=== PATIENT | female | born 1960 | race Caucasian/White ===

== ENCOUNTER 2016-11-25 08:05 | Outpatient (CLI) | payer BC ==
[2016-11-25 13:14] LABS: BASOPHILS % (AUTO) 0.6 %; EOSINOPHILS # (AUTO) 0.1 10^3/uL (0.0-0.7); HCT - HEMATOCRIT 40.4 % (37.0-47.0); HGB - HEMOGLOBIN 13.4 g/dL (12.0-16.0); LYMPHOCYTES # (AUTO) 2.7 10^3/uL (1.5-3.5); LYMPHOCYTES % (AUTO) 31.4 %; MEAN CORPUSCULAR HEMOGLOBIN 29.8 pg (27.0-31.0); MEAN CORPUSCULAR HGB CONC 33.2 g/dL (32.0-36.0); MEAN CORPUSCULAR VOLUME 89.9 fL (81.0-99.0); MEAN PLATELET VOLUME 8.9 fL (7.9-10.8); MONOCYTES # (AUTO) 0.4 10^3/uL (0.0-1.0); NEUTROPHILS # (AUTO) 5.3 10^3/uL (1.5-6.6); RED BLOOD COUNT 4.49 10^6/uL (4.20-5.40); RED CELL DISTRIBUTION WIDTH 12.9 % (12.0-15.0); UNCORRECTED WHITE BLOOD COUNT 8.6 x10^3/uL; WHITE BLOOD COUNT 8.6 x10^3/uL (4.8-10.8)
[2016-11-25 13:37] LABS: ALBUMIN/GLOBULIN RATIO 1.2 (1.0-2.2); BILIRUBIN,TOTAL 0.6 mg/dL (0.2-1.0); BUN - BLOOD UREA NITROGEN 18 mg/dL (6-20); CALCIUM 9.5 mg/dL (8.5-10.3); CARBON DIOXIDE - CO2 26 mmol/L (21-32); CHLORIDE 100 mmol/L (101-111); CHOL/HDL RATIO 3.6 (<4.4); CHOLESTEROL 211 mg/dL; GFR - MDRD 57 (>89); GLUCOSE 86 mg/dL (70-100); HDL CHOLESTEROL 59 mg/dL; LDL/HDL RATIO 1.8 (<4.4); POTASSIUM 4.1 mmol/L (3.5-5.0); SODIUM 136 mmol/L (135-145); TOTAL PROTEIN 7.7 g/dL (6.7-8.2); TRIGLYCERIDES 230 mg/dL; VLDL CHOLESTEROL 46 mg/dL
[2016-11-25 13:46] LABS: THYROID STIMULATING HORMONE 1.05 uIU/mL (0.34-5.60)
[2016-11-25 13:51] LABS: FERRITIN 73.6 ng/mL (11.0-306.8)
== END 2016-11-25 08:06 | disposition home or self-care (01) ==
LOC: LAB.R 08:05
PROVIDERS: ATTEND Nurse Practitioner Primary Care
DX: Z00.00 Encounter for general adult medical examination without abnormal findings (principal); G47.62 Sleep related leg cramps; Z79.899 Other long term (current) drug therapy; Z68.30 Body mass index [BMI] 30.0-30.9, adult; R00.2 Palpitations; E06.3 Autoimmune thyroiditis
CPT/HCPCS: 80053; 80061; 82728; 84443; 85025

== ENCOUNTER 2016-12-24 09:40 | Outpatient (CLI) | payer BC ==
--- NOTE | 2016-12-24 12:34 | XRAY Report ---
TWO VIEW CHEST: 12/24/2016 CLINICAL INDICATION: Right-sided rib pain. FINDINGS: Frontal and lateral views of the chest demonstrate a normal cardiac silhouette. The lungs are clear. No effusion or pneumothorax is present. IMPRESSION: NORMAL CHEST. JOB #: [id number] EXT JOB #:[id number]
== END 2016-12-24 09:41 | disposition home or self-care (01) ==
LOC: DI 09:40
PROVIDERS: ATTEND Nurse Practitioner Primary Care
DX: R07.81 Pleurodynia (principal)
CPT/HCPCS: 71020

== ENCOUNTER 2017-04-17 10:49 | Outpatient (CLI) | payer BC ==
--- NOTE | 2017-04-17 12:25 | XRAY Report ---
THREE VIEW LEFT HAND: 04/17/2017 CLINICAL INDICATION: Fall, pain. FINDINGS: AP, lateral, oblique views of the left hand demonstrate no evidence of fracture or dislocation. Soft tissue swelling is present. No foreign body is seen in the soft tissues. IMPRESSION: SOFT TISSUE SWELLING, WORST AT THE THIRD AND FOURTH METACARPOPHALANGEAL JOINTS, BUT NO EVIDENCE OF ACUTE FRACTURE. TD: 04/17/2017 12:24
== END 2017-04-17 10:50 | disposition home or self-care (01) ==
LOC: DI 10:49
PROVIDERS: ATTEND Nurse Practitioner Primary Care
DX: M79.642 Pain in left hand (principal); R22.32 Localized swelling, mass and lump, left upper limb

== ENCOUNTER 2017-06-13 16:42 | Emergency (ER) | payer BC ==
[2017-06-13] MEDS ORDERED: diphenhydrAMINE INJ 50 MG/ML VIAL IVP STA (16:52)
[2017-06-13] MEDS ORDERED: METOPROLOL 5 MG/5 ML VIAL IVP STA (16:52)
[2017-06-13] MEDS ORDERED: METOCLOPRAMIDE 10 MG/2 ML VIAL IVP STA (16:52)
[2017-06-13] MEDS ORDERED: KETOROLAC 30 MG/ML VIAL IVP STA (16:52)
--- NOTE | 2017-06-13 16:53 | ED Physician Documentation ---
PD HPI HEADACHE - Stated complaint Stated Complaint: HEADACHE - History obtained from History obtained from: Patient, Family () - History of Present Illness Timing - onset: Other (56-year-old woman with chronic recurrent migraines, she has had one for 4-5 days. It is a frontal headache radiating to the occiput, gradual in onset and associated with photophobia, phonophobia, and nausea. Her home regimen for migraines and includes hydrocodone, Relpax, then a Toradol shot , then a DHE shot. She has been through this regimen several times without relief. It is not associated with fevers or neck stiffness. She says that usually in the emergency department Dilaudid is helpful.) Review of Systems Ten Systems: 10 systems reviewed and negative Constitutional: denies: Fever, Chills GI: denies: Abdominal Pain, Diarrhea, Hematemesis, Bloody / black stool : denies: Dysuria, Frequency PD PAST MEDICAL HISTORY - Past Medical History Past Medical History: Yes Neuro: Headache/migraine - Allergies Allergies/Adverse Reactions: Allergies Allergy/AdvReac Type Severity Reaction Status Date / Time cephalexin [From Keflex] Allergy Hives Verified 06/13/17 17:00 codeine Allergy Itching Verified 06/13/17 17:00 PD ED PE NORMAL - Vitals Vital signs reviewed: Yes - General General: Alert and oriented X 3, No acute distress (Other than significant photophobia) - HEENT HEENT: PERRL, EOMI - Neck Neck: Supple, no meningeal sign, No bony TTP - Neuro Neuro: Alert and oriented X 3, printer helper 2-12 intact Eye Opening: Spontaneous Motor: Obeys Commands Verbal: Oriented GCS Score: 15 - Psych Psych: Normal mood, Normal affect Results - Vitals Vitals: Vital Signs - 24 hr 06/13/17 06/13/17 16:49 17:22 Temperature 35.7 C L Heart Rate 82 79 Respiratory 16 14 Rate Blood Pressure 183/100 H 148/97 H O2 Saturation 99 95 Oxygen O2 Source Room air PD MEDICAL DECISION MAKING - ED course ED course: 56-year-old woman with migraines presents with a longer than usual migraine which was treated successfully with IV Reglan, Toradol, metoprolol, and Benadryl. Departure - Departure Disposition: 01 Home, Self Care Clinical Impression: Migraine Qualifiers: Migraine type: with aura Status migrainosus presence: with status migrainosus Intractability: intractable Qualified Code(s): G43.111 - Migraine with aura, intractable, with status migrainosus Hypertension Qualifiers: Hypertension type: essential hypertension Qualified Code(s): I10 - Essential ( primary) hypertension Condition: Good Record reviewed to determine appropriate education?: Yes Instructions: ED Headache Migraine Comments: For future reference, the medications we gave you here were: Reglan, 10 mg IV, Benadryl, 25 mg IV, Toradol 30 mg IV.
[2017-06-13 18:00] VITALS: BP 133/90
== END 2017-06-13 17:58 | disposition home or self-care (01) ==
LOC: ED 16:42
DX: G43.111 Migraine with aura, intractable, with status migrainosus (principal); I10 Essential (primary) hypertension
CPT/HCPCS: 96374; 96375; 99283; 99284; J1200; J2765

== ENCOUNTER 2017-09-09 08:00 | Outpatient (CLI) | payer BC ==
[2017-09-09 18:49] LABS: BASOPHILS # (AUTO) 0.1 10^3/uL (0.0-0.1); BASOPHILS % (AUTO) 0.8 %; EOSINOPHILS # (AUTO) 0.1 10^3/uL (0.0-0.7); EOSINOPHILS % (AUTO) 0.7 %; HGB - HEMOGLOBIN 13.5 g/dL (12.0-16.0); LYMPHOCYTES # (AUTO) 1.8 10^3/uL (1.5-3.5); LYMPHOCYTES % (AUTO) 23.6 %; MEAN CORPUSCULAR HEMOGLOBIN 31.3 pg (27.0-31.0); MEAN CORPUSCULAR HGB CONC 33.4 g/dL (32.0-36.0); MEAN CORPUSCULAR VOLUME 93.6 fL (81.0-99.0); MEAN PLATELET VOLUME 8.7 fL (7.9-10.8); MONOCYTES # (AUTO) 0.4 10^3/uL (0.0-1.0); MONOCYTES % (AUTO) 5.9 %; NEUTROPHILS # (AUTO) 5.2 10^3/uL (1.5-6.6); PLT - PLATELET COUNT 306 10^3/uL (130-450); RED BLOOD COUNT 4.31 10^6/uL (4.20-5.40); RED CELL DISTRIBUTION WIDTH 12.8 % (12.0-15.0); WHITE BLOOD COUNT 7.5 x10^3/uL (4.8-10.8)
== END 2017-09-09 08:01 ==
LOC: LAB.R 08:00
PROVIDERS: ATTEND Nurse Practitioner Primary Care
DX: M25.50 Pain in unspecified joint (principal); E03.9 Hypothyroidism, unspecified; J01.90 Acute sinusitis, unspecified; Z79.899 Other long term (current) drug therapy
CPT/HCPCS: 84443; 85025; 85651; 86140

== ENCOUNTER 2017-09-12 12:29 | Outpatient (CLI) | payer BC ==
--- NOTE | 2017-09-12 14:27 | CT Report ---
Procedure Date: 09/12/2017 Accession Number: [id number] / [id number] Procedure: CT - Sinuses CPT Code: FULL RESULT: EXAM: CT MAXILLOFACIAL WITHOUT CONTRAST EXAM DATE: 09/12/2017 12:47 PM. CLINICAL HISTORY: Rhinosinusitis, acute MAXILLARY. COMPARISONS: None. TECHNIQUE: Thin-section axial images were acquired of the face without contrast. Post-processing: Coronal and sagittal reformats. Other: None. In accordance with CT protocol optimization, one or more of the following dose reduction techniques were utilized for this exam: automated exposure control, adjustment of mA and/or KV based on patient size, or use of iterative reconstructive technique. FINDINGS: Soft Tissue: The infratemporal fossa and parapharyngeal spaces are unremarkable. Orbits: Symmetric and unremarkable. Bones: No fracture or bone lesion. Temporomandibular Joints: The temporomandibular joints are symmetric and normally located. Sinuses: Very minimal mucoperiosteal thickening is present in the bilateral maxillary and bilateral sphenoid sinuses. No fluid levels are seen. There is partial occlusion of the right ostiomeatal unit. Other: None. IMPRESSION: 1. Minimal chronic maxillary and ethmoid sinusitis. RADIA
--- NOTE | 2017-09-12 19:17 | Ultrasound Report ---
Procedure Date: 09/12/2017 Accession Number: [id number] / [id number] Procedure: US - Head or Neck Soft Tissue CPT Code: FULL RESULT: EXAM: THYROID ULTRASOUND EXAM DATE: 09/12/2017 01:20 PM. CLINICAL HISTORY: Thyroid nodule. History of West thyroiditis. Patient senses lump in throat. COMPARISON: None. TECHNIQUE: Real time sonographic imaging of the thyroid was performed by the household assistant. Multiple technical sales representative static images were saved for review. FINDINGS: THYROID GLAND: Right Lobe: 2.6 x 0.7 x 0.9. cm, volume 0.85 cc. Markedly heterogeneous. Right Lobe Nodules: None. Left Lobe: 2.3 x 1.0 x 0.6 cm, volume 0.72 cc. Markedly heterogeneous. Left Lobe Nodules: None. Isthmus: 0.11 cm AP. Isthmic Nodules: None. LYMPH NODES: No adenopathy demonstrated in the central or lateral compartment. OTHER: None. IMPRESSION: 1. Small markedly heterogeneous thyroid gland consistent with history of West thyroiditis. 2. No evidence of thyroid nodule. RADIA
== END 2017-09-12 12:30 | disposition home or self-care (01) ==
LOC: DI 12:29
PROVIDERS: ATTEND Nurse Practitioner Primary Care
DX: E03.9 Hypothyroidism, unspecified (principal); E04.1 Nontoxic single thyroid nodule; E06.3 Autoimmune thyroiditis; J01.00 Acute maxillary sinusitis, unspecified; J32.8 Other chronic sinusitis
CPT/HCPCS: 70486; 76536

== ENCOUNTER 2017-12-10 08:00 | Outpatient (CLI) | payer BC ==
[2017-12-10 13:44] LABS: BASOPHILS # (AUTO) 0.1 10^3/uL (0.0-0.1); BASOPHILS % (AUTO) 0.9 %; EOSINOPHILS % (AUTO) 0.6 %; HGB - HEMOGLOBIN 13.8 g/dL (12.0-16.0); LYMPHOCYTES # (AUTO) 2.5 10^3/uL (1.5-3.5); LYMPHOCYTES % (AUTO) 38.2 %; MEAN CORPUSCULAR HEMOGLOBIN 31.4 pg (27.0-31.0); MEAN CORPUSCULAR HGB CONC 33.9 g/dL (32.0-36.0); MEAN CORPUSCULAR VOLUME 92.6 fL (81.0-99.0); MEAN PLATELET VOLUME 8.9 fL (7.9-10.8); MONOCYTES # (AUTO) 0.5 10^3/uL (0.0-1.0); NEUTROPHILS # (AUTO) 3.5 10^3/uL (1.5-6.6); NEUTROPHILS % (AUTO) 53.3 %; PLT - PLATELET COUNT 291 10^3/uL (130-450); RED BLOOD COUNT 4.41 10^6/uL (4.20-5.40); RED CELL DISTRIBUTION WIDTH 12.8 % (12.0-15.0); WHITE BLOOD COUNT 6.7 x10^3/uL (4.8-10.8)
[2017-12-10 14:01] LABS: ALBUMIN 4.4 g/dL (3.2-5.5); ALBUMIN/GLOBULIN RATIO 1.3 (1.0-2.2); ALKALINE PHOSPHATASE 59 IU/L (42-121); ALT ALANINE AMINOTRANSFERASE 72 IU/L (10-60); AST ASPARTATE AMINOTRANSFERASE 42 IU/L (10-42); BILIRUBIN,TOTAL 0.9 mg/dL (0.2-1.0); BUN - BLOOD UREA NITROGEN 24 mg/dL (6-20); CALCIUM 9.4 mg/dL (8.5-10.3); CARBON DIOXIDE - CO2 27 mmol/L (21-32); CHLORIDE 102 mmol/L (101-111); CHOL/HDL RATIO 4.5 (<4.4); CHOLESTEROL 225 mg/dL; GFR - MDRD 57 (>89); GLUCOSE 114 mg/dL (70-100); HDL CHOLESTEROL 50 mg/dL; LDL CHOLESTEROL,CALCULATED 137 mg/dL; LDL/HDL RATIO 2.7 (<4.4); SODIUM 139 mmol/L (135-145); TOTAL PROTEIN 7.8 g/dL (6.7-8.2); VLDL CHOLESTEROL 38 mg/dL
== END 2017-12-10 23:59 | disposition home or self-care (01) ==
LOC: LAB.R 08:00
PROVIDERS: ATTEND Nurse Practitioner Primary Care
DX: I10 Essential (primary) hypertension (principal); Z79.899 Other long term (current) drug therapy; E03.9 Hypothyroidism, unspecified; E78.5 Hyperlipidemia, unspecified
CPT/HCPCS: 80053; 80061; 83721; 84443; 85025

== ENCOUNTER 2018-04-05 15:15 | Outpatient (CLI) | payer BC ==
[2018-04-05 12:13] LABS: CHOL/HDL RATIO 6.3 (<4.4); CHOLESTEROL 271 mg/dL; HDL CHOLESTEROL 43 mg/dL; LDL CHOLESTEROL,CALCULATED 165 mg/dL; LDL/HDL RATIO 3.8 (<4.4); VLDL CHOLESTEROL 63 mg/dL
== END 2018-04-05 23:59 | disposition home or self-care (01) ==
LOC: LAB.R 15:15
PROVIDERS: ATTEND Nurse Practitioner Primary Care
DX: E78.5 Hyperlipidemia, unspecified (principal); E03.9 Hypothyroidism, unspecified
CPT/HCPCS: 80061; 83721; 84443

== ENCOUNTER 2018-04-16 08:37 | Outpatient (CLI) | payer BC ==
[2018-04-16] MEDS ORDERED: GADOBUTROL 10 MMOL/10 ML VIAL ONE (09:09)
[2018-04-16] MEDS ORDERED: GADOBUTROL 10 MMOL/10 ML VIAL IVP ONE ×2 (09:35)
--- NOTE | 2018-04-16 14:26 | MRI Report ---
Reason: HEADACHE, POST TRAUMATIC, AMNESIA Procedure Date: 04/16/2018 Accession Number: [id number] / [id number] Procedure: MRI - Brain W/WO CPT Code: FULL RESULT: MRI OF BRAIN INDICATION: 57-year-old female. Status post fall 4 weeks ago. Complains of headaches and amnesia. TECHNIQUE: 1. T1 sagittal and fat saturated T2 coronal. 2. Axial T1 3D MP RAGE, FLAIR, T2, T2* GRE and DWI. 3. 8 cc of IV Gadavist. T1 3D MP RAGE axial. COMPARISON: None. FINDINGS: There is very mild generalized prominence of the cerebral cortical sulci, within normal limits for stated age. Ventricular size is normal. A few tiny T2 hyperintensities are identified in the subcortical white matter of the frontal lobes. Signal intensity of cortex and white matter is otherwise normal. Flow voids are demonstrated in the main intracranial arteries. No abnormal diffusion restriction is demonstrated. No evidence of acute or chronic hemorrhage on T2*GRE sequence. No abnormal extra-axial fluid collection. No mass-effect or midline shift. No enhancing space-occupying mass lesion is demonstrated. No pathologic meningeal or cranial nerve enhancement is identified. There appears to be normal intravascular contrast enhancement in the dural venous sinuses and deep venous structures. This effectively excludes the possibility of dural venous sinus thrombosis. Limited assessment of the orbits reveals no gross pathology. All mucosal thickening seen scattered throughout the maxillary, ethmoid and sphenoid sinuses. No air-fluid level is demonstrated. No mastoid or middle ear effusion. Marrow signal intensity in the regional skeletal structures is unremarkable. IMPRESSION: 1. A few tiny T2 hyperintensities are seen in the frontal white matter as described. The etiology is uncertain. Differential diagnostic considerations would include virtually the entire gamut of white matter disease. However, the clinical significance is doubtful. 2. Otherwise normal brain MRI.
== END 2018-04-16 08:38 | disposition home or self-care (01) ==
LOC: DI 08:37
PROVIDERS: ATTEND Nurse Practitioner Primary Care
DX: G44.309 Post-traumatic headache, unspecified, not intractable (principal); R41.3 Other amnesia
CPT/HCPCS: 70553; A9585

== ENCOUNTER 2018-06-24 11:09 | Outpatient (CLI) | payer BC ==
[2018-06-24 11:43] LABS: BASOPHILS # (AUTO) 0.1 10^3/uL (0.0-0.1); BASOPHILS % (AUTO) 0.9 %; EOSINOPHILS # (AUTO) 0.1 10^3/uL (0.0-0.7); EOSINOPHILS % (AUTO) 0.7 %; HGB - HEMOGLOBIN 13.6 g/dL (12.0-16.0); LYMPHOCYTES # (AUTO) 1.7 10^3/uL (1.5-3.5); MEAN CORPUSCULAR HEMOGLOBIN 30.8 pg (27.0-31.0); MEAN CORPUSCULAR HGB CONC 33.3 g/dL (32.0-36.0); MEAN CORPUSCULAR VOLUME 92.5 fL (81.0-99.0); MONOCYTES # (AUTO) 0.3 10^3/uL (0.0-1.0); NEUTROPHILS # (AUTO) 4.7 10^3/uL (1.5-6.6); NEUTROPHILS % (AUTO) 68.4 %; PLT - PLATELET COUNT 287 10^3/uL (130-450); RED CELL DISTRIBUTION WIDTH 13.9 % (12.0-15.0); WHITE BLOOD COUNT 6.9 x10^3/uL (4.8-10.8)
[2018-06-24 12:39] LABS: ALBUMIN 4.7 g/dL (3.2-5.5); ALBUMIN/GLOBULIN RATIO 1.5 (1.0-2.2); BILIRUBIN,TOTAL 0.8 mg/dL (0.2-1.0); CALCIUM 9.8 mg/dL (8.5-10.3); TOTAL PROTEIN 7.9 g/dL (6.7-8.2)
[2018-06-24 12:57] LABS: THYROID STIMULATING HORMONE 13.25 uIU/mL (0.34-5.60)
[2018-06-24 12:59] LABS: FREE T4 (FREE THYROXINE) 0.81 ng/dL (0.58-1.64)
[2018-06-24 13:24] LABS: FOLLICLE STIMULATING HORMONE 160.81 mIU/mL
[2018-06-24 13:25] LABS: LUTEINIZING HORMONE 48.22 mIU/mL
[2018-06-25 12:41] LABS: HEPATITIS C ANTIBODY NON-REACTIVE (NON-REACTIVE)
== END 2018-06-24 11:10 | disposition home or self-care (01) ==
LOC: LAB 11:09
PROVIDERS: ATTEND Family Medicine
DX: R61 Generalized hyperhidrosis (principal); M79.7 Fibromyalgia; G43.109 Migraine with aura, not intractable, without status migrainosus; I10 Essential (primary) hypertension; E03.9 Hypothyroidism, unspecified; G56.00 Carpal tunnel syndrome, unspecified upper limb; F43.10 Post-traumatic stress disorder, unspecified; J45.998 Other asthma
CPT/HCPCS: 36415; 80053; 81599; 82306; 83001; 83002; 84144; 84439; 84443; 84481; 85025; 86803

== ENCOUNTER 2018-07-27 12:07 | Outpatient (CLI) | payer BC ==
[2018-07-27 12:31] LABS: BASOPHILS % (AUTO) 0.6 %; EOSINOPHILS # (AUTO) 0.1 10^3/uL (0.0-0.7); EOSINOPHILS % (AUTO) 0.8 %; HGB - HEMOGLOBIN 13.1 g/dL (12.0-16.0); LYMPHOCYTES # (AUTO) 1.9 10^3/uL (1.5-3.5); MEAN CORPUSCULAR HEMOGLOBIN 31.3 pg (27.0-31.0); MEAN CORPUSCULAR HGB CONC 32.3 g/dL (32.0-36.0); MEAN CORPUSCULAR VOLUME 96.9 fL (81.0-99.0); MEAN PLATELET VOLUME 9.8 fL (7.9-10.8); MONOCYTES # (AUTO) 0.3 10^3/uL (0.0-1.0); MONOCYTES % (AUTO) 4.7 %; NEUTROPHILS # (AUTO) 4.2 10^3/uL (1.5-6.6); NEUTROPHILS % (AUTO) 64.6 %; PLT - PLATELET COUNT 280 10^3/uL (130-450); RED BLOOD COUNT 4.19 10^6/uL (4.20-5.40); RED CELL DISTRIBUTION WIDTH 12.4 % (12.0-15.0); WHITE BLOOD COUNT 6.4 x10^3/uL (4.8-10.8)
== END 2018-07-27 12:08 | disposition home or self-care (01) ==
LOC: LAB 12:07
PROVIDERS: ATTEND Nurse Practitioner
DX: R59.0 Localized enlarged lymph nodes (principal); N64.4 Mastodynia; R61 Generalized hyperhidrosis
CPT/HCPCS: 36415; 85025; 85651; 86140

== ENCOUNTER 2018-08-09 10:12 | Outpatient (CLI) | payer BC ==
--- NOTE | 2018-08-09 11:30 | Mammography Report ---
Reason: BILAT BREAST PAIN Procedure Date: 08/09/2018 Accession Number: [id number] / [id number] Procedure: MALINI - Diagnostic Dig Bilat CPT Code: FULL RESULT: EXAM: Diagnostic Dig Bilat DATE: 08/09/2018 11:24 AM CLINICAL HISTORY: Intermittent bilateral breast pain TECHNIQUE: (B) - Bilateral CC and MLO views were obtained. COMPARISON: 02/29/2016, 02/08/2015, 03/02/2014 and 11/08/2010 PARENCHYMAL PATTERN: (A) - The breasts demonstrate scattered fibroglandular densities bilaterally. FINDINGS: No significant interval change. There are no suspicious masses, calcifications, or areas of distortion. A nodular density in the left upper inner quadrant is stable compared with 2010. IMPRESSION: Benign findings. BI-RADS category 2. RECOMMENDATION: (ANNUAL) - Recommend routine annual screening mammography. BI-RADS CATEGORY: (2) - Benign Findings. STANDARD QUALIFYING STATEMENTS: 1. This examination was not reviewed with the aid of Computer-Aided Detection (CAD). 2. A negative or benign imaging report should not preclude biopsy if clinically suspicious findings are present. 3. Dense breasts may obscure an underlying neoplasm. 4. This examination was reviewed with the aid of 3D breast imaging (tomosynthesis).
== END 2018-08-09 10:13 | disposition home or self-care (01) ==
LOC: DI 10:12
PROVIDERS: ATTEND Nurse Practitioner
DX: N64.4 Mastodynia (principal)
CPT/HCPCS: 77062; 77066

== ENCOUNTER 2018-11-05 08:00 | Outpatient (CLI) | payer BC ==
[2018-11-05 11:32] LABS: CREATININE,URINE 73.4 mg/dL
== END 2018-11-05 23:59 | disposition home or self-care (01) ==
LOC: LAB.R 08:00
PROVIDERS: ATTEND Internal Medicine Endocrinology, Diabetes & Metabolism
DX: E03.8 Other specified hypothyroidism (principal); E04.1 Nontoxic single thyroid nodule; E66.9 Obesity, unspecified; R03.0 Elevated blood-pressure reading, without diagnosis of hypertension; R61 Generalized hyperhidrosis
CPT/HCPCS: 81599; 82384; 82570; 83497; 83835

== ENCOUNTER 2018-12-24 05:59 | Day surgery (SDC) | payer BC ==
--- NOTE | 2018-12-24 06:13 | ED Physician Documentation ---
PD HPI ABD PAIN - Stated complaint Stated Complaint: ABD PX - Chief complaint Chief Complaint: Abd Pain - History obtained from History obtained from: Patient, Family - History of Present Illness Timing - onset: Enter time (17:00), Yesterday Timing - duration: Hours Timing - details: Abrupt onset, Waxing and waning Pain level max: 10 Pain level now: 10 Quality: Pain Location: RUQ, Epigastric Radiation: Other (radiates around bilateral flanks to back) Improved by: Other (no ameliorating factors) Worsened by: Other (no apparent exacerbating factors) Associated symptoms: Nausea. No: Fever, Vomiting, Diarrhea, Constipation, Dysuria, Chest pain Similar symptoms before: Other (milder, self-limited episodes over past few days) Recently seen: Not recently seen Review of Systems Constitutional: reports: Sweats. denies: Fever, Chills Eyes: reports: Reviewed and negative Ears: reports: Reviewed and negative Nose: reports: Reviewed and negative Throat: reports: Reviewed and negative Cardiac: reports: Reviewed and negative Respiratory: reports: Reviewed and negative GI: reports: Abdominal Pain, Nausea. denies: Abdominal Swelling, Vomiting, Constipation, Diarrhea : denies: Dysuria, Frequency Skin: reports: Reviewed and negative Musculoskeletal: reports: Reviewed and negative Neurologic: reports: Reviewed and negative PD PAST MEDICAL HISTORY - Past Medical History Cardiovascular: Hypertension - Past Surgical History Ortho: Carpal Tunnel surgery /LOG RAFTER: Hysterectomy - Allergies Allergies/Adverse Reactions: Allergies Allergy/AdvReac Type Severity Reaction Status Date / Time cephalexin [From Keflex] Allergy Hives Verified 12/24/18 06:09 codeine Allergy Itching Verified 12/24/18 06:09 - Social History Does the pt smoke?: No Smoking Status: Never smoker - Immunizations Immunizations are current?: Yes PD ED PE NORMAL - Vitals Vital signs reviewed: Yes - General General: Alert and oriented X 3, Well developed/nourished, Other (obvious and severe painful distress, diaphoretic) - HEENT HEENT: PERRL, EOMI, Moist mucous membranes - Neck Neck: Supple, no meningeal sign - Cardiac Cardiac: RRR, No murmur - Respiratory Respiratory: No respiratory distress, Clear bilaterally - Abdomen Abdomen: Soft, Non distended, Other (TTP RUQ and epigastrium) - Back Back: No CVA TTP - Derm Derm: Normal color, Warm and dry, No rash - Extremities Extremities: Normal ROM s pain, No edema - Neuro Neuro: Alert and oriented X 3 Results - Vitals Vitals: Vital Signs - 24 hr 12/24/18 06:05 Temperature 36.7 C Heart Rate 50 L Respiratory 20 Rate Blood Pressure 170/87 H O2 Saturation 100 Oxygen O2 Source Room air - Labs Labs: Laboratory Tests 12/24/18 12/24/18 12/24/18 06:20 06:20 08:15 WBC 10.9 H RBC 4.31 Hgb 13.2 Hct 39.9 MCV 92.6 MCH 30.6 MCHC 33.1 RDW 11.7 L Plt Count 304 MPV 10.3 Neut # (Auto) 7.4 H Lymph # (Auto) 2.7 [place] # (Auto) 0.7 Eos # (Auto) 0.1 Baso # (Auto) 0.1 Absolute Nucleated RBC 0.00 Nucleated RBC % 0.0 Sodium 139 Potassium 4.1 Chloride 101 Carbon Dioxide 27 Anion Gap 11.0 BUN 21 H Creatinine 0.9 Estimated GFR (MDRD) 64 L Glucose 163 H Calcium 10.8 H Total Bilirubin 1.0 AST 25 ALT 47 Alkaline Phosphatase 75 Total Protein 7.9 Albumin 4.5 Globulin 3.4 Albumin/Globulin Ratio 1.3 Lipase 47 Urine Color YELLOW Urine Clarity CLEAR Urine pH 6.0 Ur Specific [place] 1.025 Urine Protein NEGATIVE Urine Glucose (UA) NEGATIVE Urine Ketones NEGATIVE Urine Occult Blood NEGATIVE Urine Nitrite NEGATIVE Urine Bilirubin NEGATIVE Urine Urobilinogen 0.2 (NORMAL) Ur Leukocyte Esterase NEGATIVE Ur Microscopic Review NOT INDICATED Urine Culture Comments NOT INDICATED - Rads (name of study) RUQ US Radiology: Prelim report reviewed, See rad report PD MEDICAL DECISION MAKING - ED course Complexity details: reviewed results, re-evaluated patient, considered differential, d/w patient, d/w family ED course: good results with IV dilaudid but relief was transient, required repeat dose shortly after US performed. US shows multiple gallstones including impacted stone/nonmobile in region of GB neck. D/W Dr. Maravilla, and he evaluates patient in ED and plans to perform cholecystectomy later today Departure - Departure Disposition: ED Transfer to [facility] Clinical Impression: Cholecystitis Condition: Stable Discharge Date/Time: 12/24/18 09:12
[2018-12-24] MEDS ORDERED: HYDROmorphone 1 MG/ML CARPUJECT IVP STA ×3 (06:20→07:56)
[2018-12-24] MEDS ORDERED: HYDROmorphone 1 MG/ML CARPUJECT ONE ×2 (06:20→09:26)
[2018-12-24] MEDS ORDERED: ONDANSETRON 4 MG/2 ML VIAL ONE ×3 (06:20→13:17)
[2018-12-24] MEDS ORDERED: SODIUM CHLORIDE 0.9% 1,000 ML IV STA (06:20)
[2018-12-24 06:25] LABS: BASOPHILS # (AUTO) 0.1 10^3/uL (0.0-0.1); BASOPHILS % (AUTO) 0.5 %; EOSINOPHILS # (AUTO) 0.1 10^3/uL (0.0-0.7); EOSINOPHILS % (AUTO) 0.5 %; HGB - HEMOGLOBIN 13.2 g/dL (12.0-16.0); LYMPHOCYTES # (AUTO) 2.7 10^3/uL (1.5-3.5); MEAN CORPUSCULAR HEMOGLOBIN 30.6 pg (27.0-31.0); MEAN CORPUSCULAR HGB CONC 33.1 g/dL (32.0-36.0); MEAN CORPUSCULAR VOLUME 92.6 fL (81.0-99.0); MEAN PLATELET VOLUME 10.3 fL (7.9-10.8); MONOCYTES # (AUTO) 0.7 10^3/uL (0.0-1.0); NEUTROPHILS # (AUTO) 7.4 10^3/uL (1.5-6.6); NEUTROPHILS % (AUTO) 67.5 %; PLT - PLATELET COUNT 304 10^3/uL (130-450); RED BLOOD COUNT 4.31 10^6/uL (4.20-5.40); RED CELL DISTRIBUTION WIDTH 11.7 % (12.0-15.0); WHITE BLOOD COUNT 10.9 x10^3/uL (4.8-10.8)
[2018-12-24] MEDS: ONDANSETRON 4 MG/2 ML VIAL IVP STA ×2 (06:25→13:22)
[2018-12-24 06:42] LABS: ALBUMIN 4.5 g/dL (3.2-5.5); ALBUMIN/GLOBULIN RATIO 1.3 (1.0-2.2); CALCIUM 10.8 mg/dL (8.5-10.3); CREATININE 0.9 mg/dL (0.4-1.0); TOTAL PROTEIN 7.9 g/dL (6.7-8.2)
[2018-12-24] MEDS ORDERED: LACTATED RINGERS 1,000 ML IV STA (07:42)
[2018-12-24] MEDS ORDERED: PIPERACILLIN/TAZOBACTAM 3.375 GM in SODIUM CHLORIDE 0.9% MINIBAG 100 ML IV STA (07:43)
--- NOTE | 2018-12-24 07:57 | Ultrasound Report ---
Reason: abd. pain Procedure Date: 12/24/2018 Accession Number: [id number] / [id number] Procedure: US - Abdomen Limited CPT Code: Final Report FULL RESULT: EXAM: ABDOMEN ULTRASOUND LIMITED, RUQ EXAM DATE: 12/24/2018 07:15 AM. CLINICAL HISTORY: Right upper quadrant abdominal pain for 2 weeks. COMPARISON: None. TECHNIQUE: Real-time scanning was performed with static images obtained. FINDINGS: Liver: Enlarged, measuring 18.9 cm. Heterogeneous with diffusely increased echogenicity suggesting fatty infiltration or other hepatocellular disease. Patchy relatively normal echogenicity in the region of the gallbladder fossa likely reflects areas of fatty sparing. Main portal vein flow: Hepatopetal. Gallbladder: Per technologist, tenderness was present during exam. Gallbladder is distended containing multiple gallstones, including a nonmobile 8 mm stone in the region of the gallbladder neck. Gallbladder wall is prominent measuring up to 3-4 mm in some areas, however this is somewhat obscured by focal fatty sparing in the gallbladder fossa. No obvious pericholecystic fluid. Biliary System: CBD is dilated, measuring 9 mm. No obvious intrahepatic biliary ductal dilatation is identified. Pancreas: Visualized portions unremarkable. Other: Partially visualized right kidney demonstrates no gross abnormality or hydronephrosis, measures 9.1 cm in length. IMPRESSION: 1. Cholelithiasis with tenderness during examination and a nonmobile stone in the region of the gallbladder neck. 2. Dilated CBD (9 mm). No obstructing stone is seen in the visualized distal CBD sonographically. If clinically indicated MRCP could be considered for further evaluation. 3. Prominent gallbladder wall measuring up to 3-4 mm, but evaluation is somewhat limited by suspected focal fatty sparing in the region of the gallbladder fossa. Clinical correlation recommended to exclude acute cholecystitis. 4. Hepatomegaly with fatty infiltration or other hepatocellular disease. RADIA
[2018-12-24 08:33] LABS: BILIRUBIN,URINE NEGATIVE (NEGATIVE); GLUCOSE, URINE (UA) NEGATIVE (NEGATIVE); KETONES,URINE (UA) NEGATIVE (NEGATIVE); LEUKOCYTE ESTERASE, URINE NEGATIVE (NEGATIVE); NITRITE,URINE NEGATIVE (NEGATIVE); OCCULT BLOOD,URINE NEGATIVE (NEGATIVE); PROTEIN,URINE NEGATIVE (NEGATIVE); UROBILINOGEN,URINE 0.2 (NORMAL) E.U./dL (NORMAL)
[2018-12-24 08:38] LABS: CLARITY,URINE CLEAR (CLEAR)
[2018-12-24] MEDS ORDERED: LACTATED RINGERS 1,000 ML IV ONE ×2 (08:56)
[2018-12-24] MEDS ORDERED: SCOPOLAMINE PATCH TOP ONE (09:39)
[2018-12-24] MEDS ORDERED: KETOROLAC 30 MG/ML VIAL ONE (09:40)
[2018-12-24] MEDS: ENOXAPARIN 30 MG/0.3 ML SYRINGE SUBQ ONE ×2 (09:49→21:23)
[2018-12-24] MEDS ORDERED: FAMOTIDINE 20 MG/2 ML VIAL IVP ONE (10:00)
[2018-12-24] MEDS ORDERED: LIDOCAINE 1%-EPI 1:100000 20 ML MDV ONE (14:08)
--- NOTE | 2018-12-24 14:26 | ANESTHESIA ---
Pre-Anesthesia VS, & Labs - Diagnosis acute cholecystitis - Procedure lap nasim Vital Signs: Temp Pulse Resp BP Pulse Ox 36 C L 67 16 153/79 H 100 12/24/18 09:30 12/24/18 09:30 12/24/18 09:30 12/24/18 09:30 12/24/18 09:30 Height 5 ft 3 in Weight (kg) 81.65 kg Body Mass Index 31.8 - Is Patient ?: No - Lab Results Current Lab Results: Laboratory Tests 12/24/18 06:20: Sodium 139, Potassium 4.1, Chloride 101, Carbon Dioxide 27, A nion Gap 11.0, BUN 21 H, Creatinine 0.9, Estimated GFR (MDRD) 64 L, Glucose 163 H, Calcium 10.8 H, Total Bilirubin 1.0, AST 25, ALT 47, Alkaline Phosphatase 75, Total Protein 7.9, Albumin 4.5, Globulin 3.4, Albumin/Globulin Ratio 1.3, Lipase 47 12/24/18 06:20: WBC 10.9 H, RBC 4.31, Hgb 13.2, Hct 39.9, MCV 92.6, MCH 30.6, MCHC 33.1, RDW 11.7 L, Plt Count 304, MPV 10.3, Neut # (Auto) 7.4 H, Lymph # (Auto) 2.7, [place] # (Auto) 0.7, Eos # (Auto) 0.1, Baso # (Auto) 0.1, Absolute Nucleated RBC 0.00, Nucleated RBC % 0.0 Fish Bones: 12/24/18 06:20 12/24/18 06:20 Home Medications and Allergies Home Medications: Ambulatory Orders Erenumab-Aooe [Aimovig Autoinjector] 140 mg SQ PRN PRN 12/24/18 Levothyroxine [Synthroid] 112 mcg PO DAILY 12/24/18 Metoprolol Succinate 50 mg PO DAILY 12/24/18 Montelukast [Singulair] 10 mg PO QPM 12/24/18 Erenumab-Aooe [Aimovig Autoinjector] 140 mg SQ PRN PRN 12/24/18 Levothyroxine [Synthroid] 112 mcg PO DAILY 12/24/18 Metoprolol Succinate 50 mg PO DAILY 12/24/18 Montelukast [Singulair] 10 mg PO QPM 12/24/18 Allergies/Adverse Reactions: Allergies Allergy/AdvReac Type Severity Reaction Status Date / Time cephalexin [From Keflex] Allergy Hives Verified 12/24/18 06:09 codeine Allergy Itching Verified 12/24/18 06:09 Anes History & Medical History - Anesthetic History Anesthesia Complications: reports: No previous complications Family history of Anesthesia Complications: Denies Family history of Malignant Hyperthermia: Denies - Medical History Cardiovascular: reports: Hypertension, Other (reports 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 and 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 "everything was ok") Pulmonary: reports: Asthma (stress and exercise induced asthma), Sleep apnea Gastrointestinal: reports: GERD, Other Urinary: reports: None Neuro: reports: None Musculoskeletal: reports: None Endocrine/Autoimmune: reports: HyPOthyroidism Blood Disorders: reports: None Skin: reports: None Smoking Status: Never smoker Psychosocial: reports: Depression, Anxiety, Other (edible marijuana last used one month ago) - Surgical History Gynecologic: Hysterectomy Orthopedic: Carpal Tunnel surgery Exam General: Alert, Oriented x3, Cooperative, No acute distress Dental: WNL Mouth Openin Fingerbreadth Neck Mobility: Normal Mallampati classification: II Respiratory: Lungs clear, Normal breath sounds, No respiratory distress, No accessory muscle use Cardiovascular: Regular rate, Normal S1, Normal S2, No murmurs Abdomen: Normal bowel sounds, Soft, No tenderness, No hepatospenomegaly, No masses Extremities: No clubbing, No cyanosis, No edema, Normal pulses, No tenderness/s welling Neurological: Normal gait, Normal speech, Strength at 5/5 X4 ext, Normal tone, Sensation intact, Cranial nerves 3-12 NL, Reflexes 2+ Mental/Cognitive Status: Alert/Oriented X3, Normal for patient Cognitive Status: Within normal limits Plan Anesthesia Type: General Consent for Procedure(s) Verified and Reviewed: Yes Code Status: Attempt Resuscitation ASA classification: 2-Mild systemic disease Is this case an emergency?: No
[2018-12-24] MEDS ORDERED: IOTHALAMATE MEGLUMINE 50 ML VIAL ONE (17:30)
[2018-12-24] MEDS ORDERED: LIDOCAINE 1%-EPI 1:100000 20 ML MDV SUBQ ONE (17:48)
[2018-12-24] MEDS ORDERED: LORazepam 2 MG/ML VIAL ONE (18:48)
[2018-12-24] MEDS ORDERED: HYDROmorphone 0.5 MG/0.5 ML SYRINGE ONE (18:52)
[2018-12-24] MEDS ORDERED: ONDANSETRON 4 MG/2 ML VIAL IVP PRN (18:53)
--- NOTE | 2018-12-24 19:35 | IMMEDIATE POSTOPERATIVE NOTE ---
Immediate Postoperative Note - Procedure Note Procedure Date: 12/24/18 Pre-Op Diagnosis: Acute cholecystitis Procedure: Lap Ese Post-Op Diagnosis: Same Primary Surgeon: Renita Photogrammetric Technician: Scrub Anesthesia Type: General ET tube Findings: Acute cholecystitis Complications: No complications Estimated Blood Loss (in cc): 5 Specimens and Cultures: Gallbladder Plan of Care: Observe overnight with likely dschg home in am.
--- NOTE | 2018-12-24 19:40 | IMMEDIATE POSTOPERATIVE NOTE ---
Immediate Postoperative Note - Procedure Note Procedure Date: 12/24/18 Pre-Op Diagnosis: acute cholecystitis Procedure: lap nasim Post-Op Diagnosis: same Primary Surgeon: darshana Pea Viner Mechanic: wiring technician Anesthesia Type: General ET tube Findings: Acute cholecystitis Complications: No complications Estimated Blood Loss (in cc): 5 Specimens and Cultures: Gallbladder Plan of Care: Observe overnight w/likely discharge in am.
--- NOTE | 2018-12-24 20:58 | OPERATIVE REPORT ---
DATE OF SERVICE: 12/24/2018 Physician: Abhi Maravilla DO PREOPERATIVE DIAGNOSIS: Acute cholecystitis. POSTOPERATIVE DIAGNOSIS: Acute cholecystitis. PROCEDURE: Laparoscopic cholecystectomy. SURGEON: Abhi Maravilla DO ANESTHESIA PROVIDER: Bailey Macias CRNA. TYPE OF ANESTHESIA: General endotracheal tube with local assist. ESTIMATED BLOOD LOSS: Less than 5 mL FINDINGS: Acute cholecystitis with significant pericholecystic edema. COMPLICATIONS: None. DISPOSITION: Stable upon transport to recovery. HISTORY: Patient is a 58-year-old white female with about a 24-hour history of right upper quadrant abdominal pain beginning after a meal last night. The pain was unrelenting and went into her back. A gallbladder ultrasound study revealed gallstone impacted in the neck of the gallbladder. She did n ot have elevated liver enzymes. DESCRIPTION OF PROCEDURE: Patient was taken to the operating room and under the above-mentioned anes thetic, prepped and draped in the usual sterile manner. A vertically oriented intraumbilical incisio n was utilized to gain entrance into the abdominal cavity and the Jackson trocar was placed and secure d with the balloon. The pneumoperitoneum was then created and the laparoscopic camera introduced and the 3 working ports were placed under direct vision. Subsequently, the fundus of the gallbladder wa s identified, and placed on cephalad traction. The infundibulum was identified, and placed on gentle anterolateral traction. Subsequently, the cystic duct was identified, dissected and mobilized betwe en the neck of the gallbladder and the junction with the common bile duct. At no time was the common bile duct manipulated, injured or otherwise harmed. A staple was placed across the cystic duct at t he neck of the gallbladder and then 2 additional hunter below that and the cystic duct divided below the first staple. The cystic artery was next identified, dissected and mobilized and likewise tripl y ligated with hunter and divided leaving 2 hunter behind on the stump. At this time, the gallblad chang was excised out of the liver bed using electrocautery and drained intracorporeally. It was then placed in an EndoCatch bag and brought out through the umbilical port site. At this time, after a re ported correct sponge and needle count was obtained, the patient was prepared for closure. The liver bed was irrigated and a piece of Surgicel placed for added hemostasis and bacteria stasis as well. The working ports were removed under direct vision and there was no bleeding noted and the fascia was closed with 0 Vicryl. Skin margins were joined with running undyed subcuticular 4-0 Monocryl, [place] marcano over that and patient transported to recovery in stable condition. TD: 12/24/2018 19:51
[2018-12-24] MEDS: oxyCODONE 5 MG TABLET PO PRN (21:30)
[2018-12-24] MEDS ORDERED: LACTATED RINGERS 1,000 ML IV SCH (22:00)
[2018-12-25] MEDS: ACETAMINOPHEN 325 MG TABLET PO PRN ×2 (00:30→06:47)
[2018-12-25] MEDS: IBUPROFEN 600 MG TABLET PO PRN ×2 (00:31→06:48)
[2018-12-25] MEDS: oxyCODONE 5 MG TABLET PO PRN ×2 (02:01→06:46)
[2018-12-25 08:33] LABS: BILIRUBIN,URINE NEGATIVE (NEGATIVE); GLUCOSE, URINE (UA) NEGATIVE (NEGATIVE); KETONES,URINE (UA) NEGATIVE (NEGATIVE); LEUKOCYTE ESTERASE, URINE NEGATIVE (NEGATIVE); NITRITE,URINE NEGATIVE (NEGATIVE); OCCULT BLOOD,URINE NEGATIVE (NEGATIVE); PROTEIN,URINE NEGATIVE (NEGATIVE); UROBILINOGEN,URINE 0.2 (NORMAL) E.U./dL (NORMAL)
[2018-12-25 08:39] LABS: CLARITY,URINE CLEAR (CLEAR)
[2018-12-25 09:08] VITALS: BP 140/87
== END 2018-12-25 10:03 | disposition home or self-care (01) ==
LOC: ED 05:59 → SDS 09:05 → MS2 19:46 → SDS 12-25 10:03
PROVIDERS: ATTEND Surgery
PROC: 0FT44ZZ Resection of Gallbladder, Percutaneous Endoscopic Approach (ICD-10-PCS; principal; 2018-12-24 14:30)
DX: K80.12 Calculus of gallbladder with acute and chronic cholecystitis without obstruction (principal); I10 Essential (primary) hypertension; G47.30 Sleep apnea, unspecified; J45.909 Unspecified asthma, uncomplicated
CPT/HCPCS: 36415; 47562; 76705; 80053; 81003; 83690; 85025; 96374; 96376; 99285; A9270; J1170; J1650; J2060; J3490; J7120; Q9961; 81001; 87086

== ENCOUNTER 2019-02-01 10:24 | Outpatient (CLI) | payer BC ==
[2019-02-01 10:41] LABS: BASOPHILS # (AUTO) 0.1 10^3/uL (0.0-0.1); BASOPHILS % (AUTO) 0.8 %; EOSINOPHILS # (AUTO) 0.1 10^3/uL (0.0-0.7); EOSINOPHILS % (AUTO) 1.5 %; HGB - HEMOGLOBIN 13.2 g/dL (12.0-16.0); LYMPHOCYTES # (AUTO) 2.3 10^3/uL (1.5-3.5); LYMPHOCYTES % (AUTO) 29.4 %; MEAN CORPUSCULAR HEMOGLOBIN 29.9 pg (27.0-31.0); MEAN CORPUSCULAR HGB CONC 31.8 g/dL (32.0-36.0); MEAN CORPUSCULAR VOLUME 94.1 fL (81.0-99.0); MEAN PLATELET VOLUME 9.8 fL (7.9-10.8); MONOCYTES # (AUTO) 0.4 10^3/uL (0.0-1.0); MONOCYTES % (AUTO) 4.9 %; NEUTROPHILS # (AUTO) 4.9 10^3/uL (1.5-6.6); NEUTROPHILS % (AUTO) 62.9 %; PLT - PLATELET COUNT 296 10^3/uL (130-450); RED BLOOD COUNT 4.41 10^6/uL (4.20-5.40); RED CELL DISTRIBUTION WIDTH 12.4 % (12.0-15.0); WHITE BLOOD COUNT 7.8 x10^3/uL (4.8-10.8)
[2019-02-01 10:51] LABS: HB2 TOTAL 13.4 g/dL; HEMOGLOBIN A1C 0.72 g/dL; HEMOGLOBIN A1C % 7.1 % (4.6-6.2)
[2019-02-01 11:00] LABS: ALBUMIN 4.3 g/dL (3.2-5.5); ALBUMIN/GLOBULIN RATIO 1.4 (1.0-2.2); ALKALINE PHOSPHATASE 91 IU/L (42-121); ALT ALANINE AMINOTRANSFERASE 42 IU/L (10-60); AST ASPARTATE AMINOTRANSFERASE 28 IU/L (10-42); BILIRUBIN,TOTAL 0.7 mg/dL (0.2-1.0); BUN - BLOOD UREA NITROGEN 13 mg/dL (6-20); CALCIUM 9.6 mg/dL (8.5-10.3); CARBON DIOXIDE - CO2 28 mmol/L (21-32); CHLORIDE 104 mmol/L (101-111); CHOL/HDL RATIO 3.1 (<4.4); CHOLESTEROL 144 mg/dL; CREATININE 0.9 mg/dL (0.4-1.0); GFR - MDRD 64 (>89); GLUCOSE 136 mg/dL (70-100); HDL CHOLESTEROL 46 mg/dL; LDL CHOLESTEROL,CALCULATED 69 mg/dL; LDL/HDL RATIO 1.5 (<4.4); SODIUM 141 mmol/L (135-145); TOTAL PROTEIN 7.4 g/dL (6.7-8.2); VLDL CHOLESTEROL 29 mg/dL
== END 2019-02-01 10:25 | disposition home or self-care (01) ==
LOC: LAB 10:24
PROVIDERS: ATTEND Obstetrics & Gynecology
DX: Z00.00 Encounter for general adult medical examination without abnormal findings (principal); Z13.220 Encounter for screening for lipoid disorders; R61 Generalized hyperhidrosis; Z13.1 Encounter for screening for diabetes mellitus
CPT/HCPCS: 36415; 80053; 80061; 83036; 83721; 84443; 85025

== ENCOUNTER 2019-02-08 06:56 | Outpatient (CLI) | payer BC | END 2019-02-08 06:57 | disposition home or self-care (01) | LOC: LAB 06:56 | PROVIDERS: ATTEND Obstetrics & Gynecology | DX: Z13.1 Encounter for screening for diabetes mellitus (principal) | CPT/HCPCS: 36415; 82951 ==

== ENCOUNTER 2019-02-16 13:23 | Day surgery (SDC) | payer BC ==
[2019-02-16] MEDS ORDERED: fentaNYL 250 MCG/5 ML VIAL IVP ONE (13:24)
[2019-02-16] MEDS ORDERED: MIDAZOLAM 2 MG/2 ML VIAL IVP ONE (13:24)
[2019-02-16] MEDS ORDERED: LACTATED RINGERS 1,000 ML IV ONE (13:43)
[2019-02-16] MEDS: ONDANSETRON 4 MG/2 ML VIAL ONE ×2 (17:06→17:20)
[2019-02-16] MEDS ORDERED: ONDANSETRON 4 MG/2 ML VIAL ONE (17:18)
[2019-02-16 17:31] VITALS: BP 143/82
== END 2019-02-16 13:24 | disposition home or self-care (01) ==
LOC: SDS 13:23
PROVIDERS: ATTEND Surgery
PROC: 0DJ08ZZ Inspection of Upper Intestinal Tract, Via Natural or Artificial Opening Endoscopic (ICD-10-PCS; principal; 2019-02-16 14:45)
DX: K21.9 Gastro-esophageal reflux disease without esophagitis (principal); I10 Essential (primary) hypertension; G47.33 Obstructive sleep apnea (adult) (pediatric); Z90.49 Acquired absence of other specified parts of digestive tract; Z79.899 Other long term (current) drug therapy

== ENCOUNTER 2019-08-13 07:33 | Outpatient (CLI) | payer BC ==
[2019-08-13 08:11] LABS: BUN - BLOOD UREA NITROGEN 25 mg/dL (6-20); CALCIUM 9.6 mg/dL (8.5-10.3); CARBON DIOXIDE - CO2 28 mmol/L (21-32); CHLORIDE 100 mmol/L (101-111); CHOL/HDL RATIO 2.7 (<4.4); CHOLESTEROL 152 mg/dL; GLUCOSE 117 mg/dL (70-100); HDL CHOLESTEROL 56 mg/dL; LDL CHOLESTEROL,CALCULATED 62 mg/dL; LDL/HDL RATIO 1.1 (<4.4); SODIUM 138 mmol/L (135-145); VLDL CHOLESTEROL 34 mg/dL
[2019-08-13 08:20] LABS: HB2 TOTAL 14.2 g/dL; HEMOGLOBIN A1C 0.6 g/dL
[2019-08-13 09:25] LABS: FREE T4 (FREE THYROXINE) 1.01 ng/dL (0.58-1.64)
== END 2019-08-13 07:34 | disposition home or self-care (01) ==
LOC: LAB 07:33
PROVIDERS: ATTEND Nurse Practitioner
DX: E11.9 Type 2 diabetes mellitus without complications (principal); E78.5 Hyperlipidemia, unspecified; E03.9 Hypothyroidism, unspecified
CPT/HCPCS: 36415; 80048; 80061; 82043; 83036; 83721; 84439; 84443

== ENCOUNTER 2019-08-26 09:38 | Outpatient (CLI) | payer BC ==
--- NOTE | 2019-08-26 17:00 | Nuclear Medicine Report ---
PROCEDURE: Gastric Empty Small Bowel INDICATIONS: NAUSEA RADIOPHARMACEUTICAL: 0.9 mCi Tc-99m sulfur colloid in an egg sandwich. TECHNIQUE: A Tc-99m labeled sulfur colloid labeled egg sandwich or oatmeal was served to the patient. Anterior and posterior planar images of the abdomen were obtained at 0 minutes and 30 minutes, then at hourly intervals up to 4 hours. The patient was upright and ambulating during the interval. COMPARISON: None available. FINDINGS: The stomach has normal size, morphology, and position. There is normal emptying of solid gastric con tents from the stomach by visual inspection. No gastroesophageal reflux is visualized. The percentage of tracer retained at specific time points are as follows: Time point Percent gastric retention Normal range 1 hour 18.6 30% to 90% 2 hours 11.6 60% or less 3 hours 2.7 30% or less IMPRESSION: 1. Rapid gastric emptying as above. This can be seen with gastric developing syndrome. Reviewed by: Sally Blum MD on 08/26/2019 4:59 PM PDT Approved by: Sally Blum MD on 08/26/2019 4:59 PM PDT Station ID: [id number]
== END 2019-08-26 09:39 | disposition home or self-care (01) ==
LOC: DI 09:38
PROVIDERS: ATTEND Nurse Practitioner
DX: R11.0 Nausea (principal)
CPT/HCPCS: 78265

== ENCOUNTER 2019-12-12 06:55 | Day surgery (SDC) | payer BC ==
[2019-12-12] MEDS ORDERED: fentaNYL 250 MCG/5 ML VIAL IVP ONE (06:56)
[2019-12-12] MEDS ORDERED: MIDAZOLAM 2 MG/2 ML VIAL IVP ONE (06:56)
[2019-12-12] MEDS ORDERED: ONDANSETRON 4 MG/2 ML VIAL IVP ONE (06:56)
[2019-12-12] MEDS ORDERED: LACTATED RINGERS 1,000 ML IV ONE ×2 (07:15→08:31)
[2019-12-12 08:50] VITALS: BP 117/61
== END 2019-12-12 06:56 | disposition home or self-care (01) ==
LOC: SDS 06:55
PROVIDERS: ATTEND Internal Medicine Gastroenterology
PROC: 0DBE8ZZ Excision of Large Intestine, Via Natural or Artificial Opening Endoscopic (ICD-10-PCS; principal; 2019-12-12 08:00)
DX: D12.2 Benign neoplasm of ascending colon (principal); D12.4 Benign neoplasm of descending colon; K63.5 Polyp of colon; K52.89 Other specified noninfective gastroenteritis and colitis; E11.9 Type 2 diabetes mellitus without complications; M79.7 Fibromyalgia; I10 Essential (primary) hypertension; K21.9 Gastro-esophageal reflux disease without esophagitis; E03.9 Hypothyroidism, unspecified; G47.33 Obstructive sleep apnea (adult) (pediatric); J45.909 Unspecified asthma, uncomplicated; F43.10 Post-traumatic stress disorder, unspecified
CPT/HCPCS: 45380; J3010; J7120

== ENCOUNTER 2019-12-29 07:36 | Outpatient (CLI) | payer BC ==
[2019-12-29 08:09] LABS: ALBUMIN 4.3 g/dL (3.2-5.5); ALBUMIN/GLOBULIN RATIO 1.3 (1.0-2.2); BILIRUBIN,TOTAL 0.6 mg/dL (0.2-1.0); CALCIUM 9.4 mg/dL (8.5-10.3); TOTAL PROTEIN 7.7 g/dL (6.7-8.2)
[2019-12-29 12:08] LABS: HEMOGLOBIN A1c% 6.5 % (4.27-6.07)
== END 2019-12-29 07:37 | disposition home or self-care (01) ==
LOC: LAB 07:36
PROVIDERS: ATTEND Obstetrics & Gynecology
DX: Z00.00 Encounter for general adult medical examination without abnormal findings (principal); E11.9 Type 2 diabetes mellitus without complications; R19.7 Diarrhea, unspecified
CPT/HCPCS: 36415; 80053; 83036

== ENCOUNTER 2020-03-13 08:00 | Outpatient (CLI) | payer BC ==
[2020-03-13 16:32] LABS: THYROID STIMULATING HORMONE 3.14 uIU/mL (0.34-5.60)
[2020-03-13 16:34] LABS: FREE T3 3.84 pg/mL (2.5-3.9)
== END 2020-03-13 23:59 | disposition home or self-care (01) ==
LOC: LAB 08:00
PROVIDERS: ATTEND Family Medicine
DX: E03.9 Hypothyroidism, unspecified (principal)
CPT/HCPCS: 36415; 84439; 84443; 84481

== ENCOUNTER 2020-03-13 15:30 | Outpatient (CLI) | payer BC ==
--- NOTE | 2020-03-14 11:20 | Ultrasound Report ---
PROCEDURE: Head or Neck Soft Tissue INDICATIONS: HYPOTHYROIDISM, DYSPHAGIA TECHNIQUE: Real-time scanning was performed of the thyroid gland, with image documentation. COMPARISON: Thyroid ultrasound 09/12/2017 FINDINGS: Right: Thyroid lobe measures 2.4 x 0.5 x 0.9 cm, and is homogeneous in echotexture. Left: Thyroid lobe measures 2.3 x 0.7 x 0.6 cm, and is homogenous in echotexture. Isthmus: 1 mm thick. Scattered subcentimeter lymph nodes are incidentally noted. IMPRESSION: 1. Heterogeneous appearance of a small thyroid gland as above. No nodules are identified. Overall sta ble in appearance compared to 2018. Reviewed by: Sally Blum MD on 03/14/2020 11:19 AM PST Approved by: Sally Blum MD on 03/14/2020 11:19 AM PST Station ID: [id number]
== END 2020-03-13 15:31 | disposition home or self-care (01) ==
LOC: DI 15:30
PROVIDERS: ATTEND Family Medicine
DX: E03.9 Hypothyroidism, unspecified (principal); R13.10 Dysphagia, unspecified
CPT/HCPCS: 36415; 84439; 84443; 84481

== ENCOUNTER 2020-05-30 08:00 | Outpatient (CLI) | payer BC ==
[2020-05-30 18:25] LABS: BASOPHILS # (AUTO) 0.1 10^3/uL (0.0-0.1); BASOPHILS % (AUTO) 0.8 %; EOSINOPHILS # (AUTO) 0.1 10^3/uL (0.0-0.7); EOSINOPHILS % (AUTO) 0.7 %; HCT - HEMATOCRIT 45.1 % (37.0-47.0); HGB - HEMOGLOBIN 14.1 g/dL (12.0-16.0); LYMPHOCYTES % (AUTO) 23.8 %; MEAN CORPUSCULAR HEMOGLOBIN 29.8 pg (27.0-31.0); MEAN CORPUSCULAR HGB CONC 31.3 g/dL (32.0-36.0); MEAN CORPUSCULAR VOLUME 95.3 fL (81.0-99.0); MEAN PLATELET VOLUME 10.4 fL (7.9-10.8); MONOCYTES # (AUTO) 0.4 10^3/uL (0.0-1.0); NEUTROPHILS # (AUTO) 5.9 10^3/uL (1.5-6.6); NEUTROPHILS % (AUTO) 69.1 %; PLT - PLATELET COUNT 355 10^3/uL (130-450); RED BLOOD COUNT 4.73 10^6/uL (4.20-5.40); RED CELL DISTRIBUTION WIDTH 12.3 % (12.0-15.0); WHITE BLOOD COUNT 8.5 x10^3/uL (4.8-10.8)
[2020-05-30 19:31] LABS: ALBUMIN 4.9 g/dL (3.2-5.5); ALBUMIN/GLOBULIN RATIO 1.4 (1.0-2.2); ALKALINE PHOSPHATASE 92 IU/L (42-121); ALT ALANINE AMINOTRANSFERASE 67 IU/L (10-60); AST ASPARTATE AMINOTRANSFERASE 42 IU/L (10-42); BILIRUBIN,TOTAL 0.9 mg/dL (0.2-1.0); BUN - BLOOD UREA NITROGEN 17 mg/dL (6-20); CALCIUM 10.3 mg/dL (8.5-10.3); CARBON DIOXIDE - CO2 27 mmol/L (21-32); CHLORIDE 99 mmol/L (101-111); CHOL/HDL RATIO 2.6 (<4.4); CHOLESTEROL 137 mg/dL; GFR - MDRD 57 (>89); GLUCOSE 158 mg/dL (70-100); HDL CHOLESTEROL 52 mg/dL; LDL CHOLESTEROL,CALCULATED 32 mg/dL; LDL/HDL RATIO 0.6 (<4.4); POTASSIUM 4.2 mmol/L (3.5-5.0); SODIUM 137 mmol/L (135-145); TOTAL PROTEIN 8.4 g/dL (6.7-8.2); TRIGLYCERIDES 264 mg/dL; VLDL CHOLESTEROL 53 mg/dL
[2020-05-30 19:45] LABS: THYROID STIMULATING HORMONE 6.02 uIU/mL (0.34-5.60)
[2020-05-30 20:35] LABS: FREE T4 (FREE THYROXINE) 0.96 ng/dL (0.58-1.64)
[2020-05-30 20:39] LABS: ESTIMATED AVERAGE GLUCOSE 148 mg/dL (70-100); HEMOGLOBIN A1c% 6.8 % (4.27-6.07)
== END 2020-05-30 23:59 | disposition home or self-care (01) ==
LOC: LAB.WCP 08:00
PROVIDERS: ATTEND Family Medicine
DX: K52.9 Noninfective gastroenteritis and colitis, unspecified (principal); E11.9 Type 2 diabetes mellitus without complications; E03.9 Hypothyroidism, unspecified
CPT/HCPCS: 36415; 80053; 80061; 83036; 83721; 84439; 84443; 85025

== ENCOUNTER 2020-06-01 14:02 | Outpatient (CLI) | payer BC ==
[2020-06-01] MEDS ORDERED: IOPAMIDOL-300 100 ML VIAL ONE (14:07)
[2020-06-01] MEDS ORDERED: IOPAMIDOL-300 50 ML VIAL ONE (14:08)
[2020-06-01] MEDS ORDERED: IOPAMIDOL-300 50 ML VIAL PO ONE (15:28)
[2020-06-01] MEDS ORDERED: IOPAMIDOL-300 100 ML VIAL IVP ONE (15:28)
--- NOTE | 2020-06-01 15:51 | CT Report ---
PROCEDURE: Abdomen/Pelvis W INDICATIONS: COLITIS CONTRAST: IV CONTRAST: Isovue 300 ml: 100 PO CONTRAST: Isovue 300 ml50 TECHNIQUE: After the administration of contrast, 5 mm thick sections acquired from the diaphragms to the sym physis. 5 mm thick coronal and sagittal reformats were acquired. For radiation dose reduction, the following was used: automated exposure control, adjustment of mA and/or kV according to patient size . COMPARISON: None. FINDINGS: Image quality: Excellent. ABDOMEN: Lung bases: Lung bases are clear. Heart size is normal. Solid organs: Liver is enlarged, and a trace diffusely decreased density. Gallbladder is surgically absent Biliary system is non dilated. Pancreas enhances normally. No adrenal nodules. Kidneys dem onstrate normal size and enhancement, without hydronephrosis. Peritoneum and bowel: Bowel loops demonstrate normal wall thickness and caliber. Normal appendix. No free fluid or air. Nodes and vessels: No retroperitoneal or mesenteric adenopathy by size criteria. Aorta and inferior vena cava are normal in size. Miscellaneous: No ventral hernias. PELVIS: Genitourinary: Bladder wall thickness is normal. Miscellaneous: No inguinal hernias or adenopathy. Bones: No suspicious bony lesions. No vertebral body compression fractures. IMPRESSION: 1. No acute process. No evidence of colitis. 2. Normal appendix. 3. Hepatic steatosis. Reviewed by: Pj Camarillo MD on 06/01/2020 3:49 PM PDT Approved by: Pj Camarillo MD on 06/01/2020 3:49 PM PDT Station ID: [id number]
== END 2020-06-01 14:03 | disposition home or self-care (01) ==
LOC: DI 14:02
PROVIDERS: ATTEND Family Medicine
DX: K76.0 Fatty (change of) liver, not elsewhere classified (principal)
CPT/HCPCS: 74177; Q9967

== ENCOUNTER 2020-06-18 12:50 | Outpatient (CLI) | payer BC ==
--- NOTE | 2020-06-19 12:10 | Mammography Report ---
BILATERAL DIGITAL SCREENING MAMMOGRAM 3D/2D: 06/18/2020 CLINICAL: Routine screening. Comparison is made to exams dated: 08/09/2018 mammogram - [facility] and 02/29/2016 m ammogram - [facility]. There are scattered fibroglandular elements in both breasts. There is an equal density asymmetry in the left breast middle depth central to the nipple seen on the craniocaudal view only. No other significant masses, calcifications, or other findings are seen in either breast. IMPRESSION: INCOMPLETE: NEEDS ADDITIONAL IMAGING EVALUATION Asymmetry in the left breast is indeterminate. Additional views with possible ultrasound are recommended. This exam was interpreted at Station ID: [id number]. NOTE: For mammograms, a report in lay terms will be sent to the patient. Approximately 15% of breast malignancies will not be visualized mammographically. In the management of a palpable breast mass, a negative mammogram must not discourage biopsy of a clinically suspicious lesion. Electronically Signed By: Tj Painting M.D. slc/:06/18/2020 14:03:28 ACR BI-RADS Category 0: Incomplete 3340F PARENCHYMAL PATTERN: (A) - The breast(s) demonstrate(s) scattered fibroglandular densities. BI-RADS CATEGORY: (0) - 0 Mammo and US [id number] Immediate follow-up LATERALITY: (B)
== END 2020-06-18 12:51 | disposition home or self-care (01) ==
LOC: DI 12:50
DX: Z12.31 Encounter for screening mammogram for malignant neoplasm of breast (principal); R92.8 Other abnormal and inconclusive findings on diagnostic imaging of breast

== ENCOUNTER 2020-07-06 11:19 | Outpatient (CLI) | payer BC ==
--- NOTE | 2020-07-10 13:23 | Ultrasound Report ---
LIMITED ULTRASOUND OF LEFT BREAST: 07/06/2020 CLINICAL: Short term follow up for the left breast. Comparison is made to exams dated: 07/06/2020 mammogram, 06/18/2020 mammogram, 08/09/2018 mammogram - [facility], and 02/29/2016 mammogram - [facility]. 01/21/2015 Color flow and real-time ultrasound of the left breast 11-12 o'clock region were performed. Cunningham sca le images of the real-time examination were reviewed. There is a benign 0.9 cm x 0.6 cm x 0.3 cm oval normal lymph node with a circumscribed margin in the left breast at 12 o'clock middle depth 9 cm from the nipple. This oval normal lymph node displays fa tty hilum and no posterior acoustic shadowing or enhancement. This correlates with mammography findi ngs. Color flow imaging demonstrates that there is vascularity present. There is a second similar ap pearing normal lymph node at 12:00 6 cm from the nipple. There also is a stable benign 1 cm x 0.7 cm x 0.6 cm oval cyst with a smooth internal wall in the lef t breast at 11 o'clock posterior depth 8 cm from the nipple. This oval cyst is anechoic and hypoecho ic with a well-defined boundary and internal echoes. This correlates with mammography findings. Col or flow imaging demonstrates that there is no vascularity present. IMPRESSION: BENIGN There is no sonographic evidence of malignancy. The 0.9 cm intramammary lymph node in the left breast at 12 o'clock middle depth is benign. 1 cm complicated cyst in the left breast at 11 o'clock posterior depth demonstrates long-term stabili ty and is benign. A 1 year screening mammogram is recommended. Exam findings were conveyed to the patient. This exam was interpreted at Station ID: [id number]. Electronically Signed By: Tj Painting M.D. slc/:07/06/2020 13:11:52 Ultrasound BI-RADS: 2 Benign BI-RADS CATEGORY: (2) - 2 RECOMMENDATION: (ANNUAL) - Recommend routine annual screening mammography. [id number] 1 year screening LATERALITY: (B)
--- NOTE | 2020-07-10 13:23 | Mammography Report ---
UNILATERAL LEFT DIGITAL DIAGNOSTIC MAMMOGRAM 3D/2D: 07/06/2020 CLINICAL: Patient returns today to evaluate an asymmetry in the left breast. Comparison is made to exams dated: 06/18/2020 mammogram, 08/09/2018 mammogram - [facility], and 02/29/2016 mammogram - [facility]. 01/21/2015. There are scattered fibrogland ular elements in left breast. There is a 0.7 cm equal density asymmetry in the left breast middle depth central to the nipple seen on the craniocaudal view only. This is less prominent on additional views. There also is a 1.2 cm mass with a circumscribed and microlobulated margin in the left breast at 11 o 'clock posterior depth. This demonstrates long-term stability since at least 2014. No other significant masses or calcifications are seen in the breast. IMPRESSION: INCOMPLETE: NEEDS ADDITIONAL IMAGING EVALUATION The 0.7 cm asymmetry in the left breast middle depth central to the nipple is indeterminate. -A targeted ultrasound is recommended and will immediately follow. Benign 1.2 cm mass in the left breast at 11 o'clock posterior depth demonstrates long-term stability and most likely is a cyst. This exam was interpreted at Station ID: [id number]. NOTE: For mammograms, a report in lay terms will be sent to the patient. Approximately 15% of breast malignancies will not be visualized mammographically. In the management of a palpable breast mass, a negative mammogram must not discourage biopsy of a clinically suspicious lesion. Electronically Signed By: Tj Painting M.D. slc/:07/06/2020 13:10:09 ACR BI-RADS Category 0: Incomplete 3340F PARENCHYMAL PATTERN: (A) - The breast(s) demonstrate(s) scattered fibroglandular densities. BI-RADS CATEGORY: (0) - 0 Ultrasound [id number] Immediate follow-up LATERALITY: (B)
== END 2020-07-06 11:20 | disposition home or self-care (01) ==
LOC: DI 11:19
PROVIDERS: ATTEND Family Medicine
DX: N60.02 Solitary cyst of left breast (principal)

== ENCOUNTER 2020-10-16 08:00 | Outpatient (CLI) | payer BC ==
[2020-10-16 17:51] LABS: BASOPHILS # (AUTO) 0.1 10^3/uL (0.0-0.1); BASOPHILS % (AUTO) 0.8 %; EOSINOPHILS % (AUTO) 0.4 %; HGB - HEMOGLOBIN 14.3 g/dL (12.0-16.0); LYMPHOCYTES # (AUTO) 1.9 10^3/uL (1.5-3.5); LYMPHOCYTES % (AUTO) 20.1 %; MEAN CORPUSCULAR HEMOGLOBIN 30.6 pg (27.0-31.0); MEAN CORPUSCULAR HGB CONC 31.1 g/dL (32.0-36.0); MEAN CORPUSCULAR VOLUME 98.5 fL (81.0-99.0); MEAN PLATELET VOLUME 10.4 fL (7.9-10.8); MONOCYTES # (AUTO) 0.5 10^3/uL (0.0-1.0); MONOCYTES % (AUTO) 5.3 %; NEUTROPHILS # (AUTO) 6.7 10^3/uL (1.5-6.6); PLT - PLATELET COUNT 344 10^3/uL (130-450); RED BLOOD COUNT 4.67 10^6/uL (4.20-5.40); RED CELL DISTRIBUTION WIDTH 12.7 % (12.0-15.0); WHITE BLOOD COUNT 9.2 x10^3/uL (4.8-10.8)
[2020-10-16 18:08] LABS: ALBUMIN 4.9 g/dL (3.2-5.5); ALBUMIN/GLOBULIN RATIO 1.4 (1.0-2.2); ALKALINE PHOSPHATASE 88 IU/L (42-121); ALT ALANINE AMINOTRANSFERASE 70 IU/L (10-60); AST ASPARTATE AMINOTRANSFERASE 43 IU/L (10-42); BILIRUBIN,TOTAL 1.1 mg/dL (0.2-1.0); BUN - BLOOD UREA NITROGEN 17 mg/dL (6-20); CALCIUM 9.9 mg/dL (8.5-10.3); CARBON DIOXIDE - CO2 27 mmol/L (21-32); CHLORIDE 98 mmol/L (101-111); CREATININE 1.1 mg/dL (0.4-1.0); GFR - MDRD 51 (>89); GLUCOSE 135 mg/dL (70-100); POTASSIUM 4.7 mmol/L (3.5-5.0); SODIUM 137 mmol/L (135-145); TOTAL PROTEIN 8.5 g/dL (6.7-8.2); URIC ACID 7.5 mg/dL (2.6-7.2)
[2020-10-16 18:16] LABS: CRP - C-REACTIVE PROTEIN < 1.0 mg/dL (0-1.0)
[2020-10-16 20:33] LABS: ESTIMATED AVERAGE GLUCOSE 148 mg/dL (70-100); HEMOGLOBIN A1c% 6.8 % (4.27-6.07)
== END 2020-10-16 23:59 | disposition home or self-care (01) ==
LOC: LAB.WCP 08:00
PROVIDERS: ATTEND Family Medicine
DX: E11.9 Type 2 diabetes mellitus without complications (principal); M79.673 Pain in unspecified foot
CPT/HCPCS: 36415; 80053; 83036; 84550; 85025; 85651; 86140

== ENCOUNTER 2021-04-29 14:12 | Outpatient (CLI) | payer BC ==
--- NOTE | 2021-04-29 15:11 | Ultrasound Report ---
PROCEDURE: Duplex Ext Veins Right INDICATIONS: RIGHT GROIN UPPER THIGH PAIN TECHNIQUE: Real-time imaging, as well as color and pulse Doppler interrogation, were performed of the lower extr emity deep veins from the inguinal ligament to the popliteal fossa. COMPARISON: None. FINDINGS: The deep veins are normally compressible, and free of intraluminal thrombus. Color and pu lse Doppler demonstrate normal phasic intraluminal flow. There is normal augmentation response to di stal compression maneuver. IMPRESSION: No evidence of right lower extremity DVT. Reviewed by: Pj Camarillo MD on 04/29/2021 3:10 PM PDT Approved by: Pj Camarillo MD on 04/29/2021 3:10 PM PDT Station ID: [id number]
== END 2021-04-29 14:13 | disposition home or self-care (01) ==
LOC: DI 14:12
PROVIDERS: ATTEND Nurse Practitioner Family
DX: M25.551 Pain in right hip (principal); Z98.890 Other specified postprocedural states

== ENCOUNTER 2021-04-29 14:13 | Outpatient (CLI) | payer BC ==
[2021-04-29 14:31] LABS: BASOPHILS # (AUTO) 0.1 10^3/uL (0.0-0.1); BASOPHILS % (AUTO) 0.7 %; EOSINOPHILS # (AUTO) 0.1 10^3/uL (0.0-0.7); EOSINOPHILS % (AUTO) 0.6 %; HCT - HEMATOCRIT 42.9 % (37.0-47.0); LYMPHOCYTES # (AUTO) 2.7 10^3/uL (1.5-3.5); LYMPHOCYTES % (AUTO) 22.4 %; MEAN CORPUSCULAR HEMOGLOBIN 30.2 pg (27.0-31.0); MEAN CORPUSCULAR HGB CONC 32.6 g/dL (32.0-36.0); MEAN CORPUSCULAR VOLUME 92.5 fL (81.0-99.0); MEAN PLATELET VOLUME 9.7 fL (7.9-10.8); MONOCYTES # (AUTO) 0.5 10^3/uL (0.0-1.0); MONOCYTES % (AUTO) 4.2 %; NEUTROPHILS # (AUTO) 8.7 10^3/uL (1.5-6.6); NEUTROPHILS % (AUTO) 71.6 %; PLT - PLATELET COUNT 368 10^3/uL (130-450); RED BLOOD COUNT 4.64 10^6/uL (4.20-5.40); RED CELL DISTRIBUTION WIDTH 11.9 % (12.0-15.0); WHITE BLOOD COUNT 12.2 x10^3/uL (4.8-10.8)
[2021-04-29 14:53] LABS: ALBUMIN 4.7 g/dL (3.2-5.5); ALBUMIN/GLOBULIN RATIO 1.2 (1.0-2.2); ALKALINE PHOSPHATASE 91 IU/L (42-121); ALT ALANINE AMINOTRANSFERASE 69 IU/L (10-60); AST ASPARTATE AMINOTRANSFERASE 49 IU/L (10-42); BILIRUBIN,TOTAL 0.4 mg/dL (0.2-1.0); BUN - BLOOD UREA NITROGEN 23 mg/dL (6-20); CALCIUM 10.2 mg/dL (8.5-10.3); CARBON DIOXIDE - CO2 27 mmol/L (21-32); CHLORIDE 98 mmol/L (101-111); CHOL/HDL RATIO 3.1 (<4.4); CHOLESTEROL 147 mg/dL; CREATININE 0.9 mg/dL (0.4-1.0); GFR - MDRD 64 (>89); GLUCOSE 154 mg/dL (70-100); HDL CHOLESTEROL 47 mg/dL; LDL CHOLESTEROL,CALCULATED 25 mg/dL; LDL/HDL RATIO 0.5 (<4.4); POTASSIUM 4.2 mmol/L (3.5-5.0); SODIUM 138 mmol/L (135-145); TOTAL PROTEIN 8.5 g/dL (6.7-8.2); TRIGLYCERIDES 377 mg/dL; URIC ACID 4.3 mg/dL (2.6-7.2); VLDL CHOLESTEROL 75 mg/dL
[2021-04-29 15:02] LABS: THYROID STIMULATING HORMONE 8.96 uIU/mL (0.34-5.60)
[2021-04-29 15:19] LABS: CREATININE,URINE 99.8 mg/dL; MICROALBUM/CREATININE RATIO,UR 238.5 ug/mg (<30.0); MICROALBUMIN,URINE 23.8 mg/dL (0-300.0)
[2021-04-29 16:01] LABS: FREE T4 (FREE THYROXINE) 0.96 ng/dL (0.58-1.64)
--- NOTE | 2021-04-29 16:23 | XRAY Report ---
PROCEDURE: Hip w/Pelvis 2-3V RT INDICATIONS: HIP JOINT PAIN, RIGHT TECHNIQUE: AP pelvis with lateral view(s) of the right hip(s). COMPARISON: Reference is made to the CT pelvis dated June 01, 2020. FINDINGS: BONES/JOINTS: No acute, displaced fracture. No widening of the pubic symphysis. The sacroiliac joints are symmetric. The femoral heads are normal ly seated within the acetabulum. SOFT TISSUES: No focal abnormality. IMPRESSION: 1.No acute osseous abnormality. Reviewed by: Javi Foster MD on 04/29/2021 4:21 PM PDT Approved by: Javi Foster MD on 04/29/2021 4:21 PM PDT Station ID: [id number]
[2021-04-29 21:50] LABS: ESTIMATED AVERAGE GLUCOSE 166 mg/dL (70-100); HEMOGLOBIN A1c% 7.4 % (4.27-6.07)
== END 2021-04-29 14:14 | disposition home or self-care (01) ==
LOC: DI 14:13
PROVIDERS: ATTEND Nurse Practitioner Family
DX: M25.551 Pain in right hip (principal); K21.9 Gastro-esophageal reflux disease without esophagitis; E11.9 Type 2 diabetes mellitus without complications; Z13.220 Encounter for screening for lipoid disorders; Z13.21 Encounter for screening for nutritional disorder; E03.9 Hypothyroidism, unspecified; Z98.890 Other specified postprocedural states
CPT/HCPCS: 36415; 80053; 80061; 82043; 82306; 82570; 83036; 83721; 84439; 84443; 84550; 85025

== ENCOUNTER 2021-10-28 09:44 | Outpatient (CLI) | payer BC ==
[2021-10-28 10:12] LABS: CREATININE,URINE 52.9 mg/dL; MICROALBUM/CREATININE RATIO,UR 141.8 ug/mg (<30.0); MICROALBUMIN,URINE 7.5 mg/dL (0-300.0)
[2021-10-28 12:57] LABS: ESTIMATED AVERAGE GLUCOSE 160 mg/dL (70-100); HEMOGLOBIN A1c% 7.2 % (4.27-6.07)
== END 2021-10-28 09:45 | disposition home or self-care (01) ==
LOC: LAB 09:44
PROVIDERS: ATTEND Nurse Practitioner
DX: E11.9 Type 2 diabetes mellitus without complications (principal)
CPT/HCPCS: 36415; 82043; 82570; 83036

== ENCOUNTER 2022-05-06 09:14 | Outpatient (CLI) | payer BC ==
[2022-05-06 09:59] LABS: THYROID STIMULATING HORMONE 4.18 uIU/mL (0.34-5.60)
[2022-05-06 10:01] LABS: FREE T4 (FREE THYROXINE) 1.06 ng/dL (0.58-1.64)
[2022-05-06 20:42] LABS: ESTIMATED AVERAGE GLUCOSE 169 mg/dL (70-100); HEMOGLOBIN A1c% 7.5 % (4.27-6.07)
== END 2022-05-06 09:15 | disposition home or self-care (01) ==
LOC: LAB 09:14
PROVIDERS: ATTEND Nurse Practitioner
DX: E11.9 Type 2 diabetes mellitus without complications (principal); E03.9 Hypothyroidism, unspecified
CPT/HCPCS: 36415; 83036; 84439; 84443

== ENCOUNTER 2022-07-08 09:06 | Outpatient (CLI) | payer BC ==
--- NOTE | 2022-07-08 14:41 | XRAY Report ---
PROCEDURE: Shoulder 3 View LT INDICATIONS: SHOULDER PAIN LEFT TECHNIQUE: 3 views of the shoulder were acquired. COMPARISON: None. FINDINGS: Bones: No fractures or dislocations. No suspicious bony lesions. Visualized ribs appear intact. Mild to moderate acromioclavicular degenerative change. Soft tissues: No suspicious soft tissue calcifications. IMPRESSION: No visualized acute fracture or dislocation. However, occult injury cannot be excluded. Recommend kathleen rt interval imaging follow-up in 7-10 days as clinically indicated for additional evaluation. Reviewed by: Sally Blum MD on 07/08/2022 2:40 PM PDT Approved by: Sally Blum MD on 07/08/2022 2:40 PM PDT Station ID: [id number]
== END 2022-07-08 09:07 | disposition home or self-care (01) ==
LOC: DI 09:06
PROVIDERS: ATTEND Nurse Practitioner
DX: M19.012 Primary osteoarthritis, left shoulder (principal)

== ENCOUNTER 2022-07-24 10:00 | Outpatient (CLI) | payer BC | END 2022-07-24 10:15 | disposition home or self-care (01) | LOC: LAB.N 10:00 | PROVIDERS: ATTEND Nurse Practitioner | DX: N39.0 Urinary tract infection, site not specified (principal) | CPT/HCPCS: 87086 ==

== ENCOUNTER 2022-11-28 09:12 | Outpatient (CLI) | payer BC ==
[2022-11-28 09:25] LABS: BASOPHILS # (AUTO) 0.1 10^3/uL (0.0-0.1); EOSINOPHILS # (AUTO) 0.1 10^3/uL (0.0-0.7); EOSINOPHILS % (AUTO) 1.2 %; HCT - HEMATOCRIT 44.6 % (37.0-47.0); HGB - HEMOGLOBIN 14.2 g/dL (12.0-16.0); LYMPHOCYTES # (AUTO) 2.8 10^3/uL (1.5-3.5); LYMPHOCYTES % (AUTO) 34.6 %; MEAN CORPUSCULAR HEMOGLOBIN 29.7 pg (27.0-31.0); MEAN CORPUSCULAR HGB CONC 31.8 g/dL (32.0-36.0); MEAN CORPUSCULAR VOLUME 93.3 fL (81.0-99.0); MEAN PLATELET VOLUME 9.1 fL (7.9-10.8); MONOCYTES # (AUTO) 0.4 10^3/uL (0.0-1.0); MONOCYTES % (AUTO) 5.4 %; NEUTROPHILS # (AUTO) 4.7 10^3/uL (1.5-6.6); NEUTROPHILS % (AUTO) 57.3 %; PLT - PLATELET COUNT 353 10^3/uL (130-450); RED BLOOD COUNT 4.78 10^6/uL (4.20-5.40); RED CELL DISTRIBUTION WIDTH 12.3 % (12.0-15.0); WHITE BLOOD COUNT 8.2 x10^3/uL (4.8-10.8)
[2022-11-28 09:38] LABS: ALBUMIN 4.4 g/dL (3.2-5.5); ALBUMIN/GLOBULIN RATIO 1.7 (1.0-2.2); ALKALINE PHOSPHATASE 94 IU/L (42-121); ALT ALANINE AMINOTRANSFERASE 80 IU/L (10-60); AST ASPARTATE AMINOTRANSFERASE 30 IU/L (10-42); BILIRUBIN,TOTAL 0.7 mg/dL (0.2-1.0); BUN - BLOOD UREA NITROGEN 19 mg/dL (6-20); CALCIUM 9.7 mg/dL (8.5-10.3); CARBON DIOXIDE - CO2 30 mmol/L (21-32); CHLORIDE 100 mmol/L (101-111); CHOL/HDL RATIO 2.9 (<4.4); CHOLESTEROL 128 mg/dL; CREATININE 1.1 mg/dL (0.6-1.3); GFR - MDRD 50 (>89); GLUCOSE 134 mg/dL (74-104); HDL CHOLESTEROL 44 mg/dL; LDL CHOLESTEROL,CALCULATED 49 mg/dL; LDL/HDL RATIO 1.1 (<4.4); POTASSIUM 4.4 mmol/L (3.5-4.5); SODIUM 137 mmol/L (135-145); TRIGLYCERIDES 173 mg/dL (48-352); VLDL CHOLESTEROL 35 mg/dL
[2022-11-28 12:25] LABS: ESTIMATED AVERAGE GLUCOSE 137 mg/dL (70-100); HEMOGLOBIN A1c% 6.4 % (4.27-6.07)
== END 2022-11-28 09:13 | disposition home or self-care (01) ==
LOC: LAB 09:12
PROVIDERS: ATTEND Nurse Practitioner
DX: E11.9 Type 2 diabetes mellitus without complications (principal); N39.0 Urinary tract infection, site not specified
CPT/HCPCS: 36415; 80053; 80061; 83036; 83721; 85025; 87086

== ENCOUNTER 2023-02-05 08:45 | Outpatient (CLI) | payer BC | END 2023-02-05 09:00 | disposition home or self-care (01) | LOC: LAB.N 08:45 | PROVIDERS: ATTEND Specialist | DX: R30.0 Dysuria (principal) | CPT/HCPCS: 87086 ==

== ENCOUNTER 2023-04-23 08:00 | Outpatient (CLI) | payer BC | END 2023-04-23 23:59 | disposition home or self-care (01) | LOC: LAB 08:00 | PROVIDERS: ATTEND Urology | DX: N30.90 Cystitis, unspecified without hematuria (principal) | CPT/HCPCS: 87086; 87181 ==

== ENCOUNTER 2023-05-13 11:07 | Outpatient (CLI) | payer BC ==
[2023-05-13 11:25] LABS: HCT - HEMATOCRIT 43.3 % (37.0-47.0); HGB - HEMOGLOBIN 13.9 g/dL (12.0-16.0); MEAN CORPUSCULAR HEMOGLOBIN 30.1 pg (27.0-31.0); MEAN CORPUSCULAR HGB CONC 32.1 g/dL (32.0-36.0); MEAN CORPUSCULAR VOLUME 93.7 fL (81.0-99.0); MEAN PLATELET VOLUME 9.7 fL (7.9-10.8); RED BLOOD COUNT 4.62 10^6/uL (4.20-5.40); RED CELL DISTRIBUTION WIDTH 12.2 % (12.0-15.0); WHITE BLOOD COUNT 9.9 x10^3/uL (4.8-10.8)
[2023-05-13 11:42] LABS: ALBUMIN 4.5 g/dL (3.2-5.5); ALBUMIN/GLOBULIN RATIO 1.3 (1.0-2.2); ALKALINE PHOSPHATASE 68 IU/L (42-121); ALT ALANINE AMINOTRANSFERASE 63 IU/L (10-60); AST ASPARTATE AMINOTRANSFERASE 39 IU/L (10-42); BILIRUBIN,TOTAL 0.6 mg/dL (0.2-1.0); BUN - BLOOD UREA NITROGEN 23 mg/dL (6-20); CALCIUM 10.4 mg/dL (8.5-10.3); CARBON DIOXIDE - CO2 28 mmol/L (21-32); CHLORIDE 99 mmol/L (101-111); CREATININE 1.1 mg/dL (0.6-1.3); CRP - C-REACTIVE PROTEIN < 0.5 mg/dL (<0.5); GFR - MDRD 50 (>89); GLUCOSE 124 mg/dL (74-104); POTASSIUM 4.6 mmol/L (3.5-4.5); SODIUM 133 mmol/L (135-145); TOTAL PROTEIN 8.1 g/dL (6.4-8.9); URIC ACID 5.2 mg/dL (2.3-6.6)
[2023-05-13 13:52] LABS: RHEUMATOID FACTOR NEGATIVE (Negative)
== END 2023-05-13 11:08 | disposition home or self-care (01) ==
LOC: LAB 11:07
PROVIDERS: ATTEND Nurse Practitioner
DX: M19.042 Primary osteoarthritis, left hand (principal); M19.041 Primary osteoarthritis, right hand; R74.8 Abnormal levels of other serum enzymes
CPT/HCPCS: 36415; 80053; 82977; 84550; 85027; 85651; 86038; 86140; 86200; 86225; 86430

== ENCOUNTER 2023-06-05 08:00 | Outpatient (CLI) | payer BC | END 2023-06-05 23:59 | disposition home or self-care (01) | LOC: LAB 08:00 | PROVIDERS: ATTEND Urology | DX: N30.00 Acute cystitis without hematuria (principal) | CPT/HCPCS: 87086; 87181 ==

== ENCOUNTER 2023-09-25 08:00 | Outpatient (CLI) | payer BC | END 2023-09-25 23:59 | disposition home or self-care (01) | LOC: LAB 08:00 | PROVIDERS: ATTEND Urology | DX: N30.00 Acute cystitis without hematuria (principal) | CPT/HCPCS: 87086; 87181 ==

== ENCOUNTER 2023-10-05 09:10 | Outpatient (CLI) | payer BC ==
[2023-10-05 10:33] LABS: BASOPHILS # (AUTO) 0.1 10^3/uL (0.0-0.1); BASOPHILS % (AUTO) 0.6 %; EOSINOPHILS # (AUTO) 0.1 10^3/uL (0.0-0.7); EOSINOPHILS % (AUTO) 1.1 %; HCT - HEMATOCRIT 41.3 % (37.0-47.0); HGB - HEMOGLOBIN 13.4 g/dL (12.0-16.0); LYMPHOCYTES # (AUTO) 2.2 10^3/uL (1.5-3.5); LYMPHOCYTES % (AUTO) 24.1 %; MEAN CORPUSCULAR HEMOGLOBIN 29.9 pg (27.0-31.0); MEAN CORPUSCULAR HGB CONC 32.4 g/dL (32.0-36.0); MEAN CORPUSCULAR VOLUME 92.2 fL (81.0-99.0); MEAN PLATELET VOLUME 9.7 fL (7.9-10.8); MONOCYTES # (AUTO) 0.4 10^3/uL (0.0-1.0); MONOCYTES % (AUTO) 4.7 %; NEUTROPHILS # (AUTO) 6.4 10^3/uL (1.5-6.6); NEUTROPHILS % (AUTO) 69.1 %; PLT - PLATELET COUNT 329 10^3/uL (130-450); RED BLOOD COUNT 4.48 10^6/uL (4.20-5.40); RED CELL DISTRIBUTION WIDTH 12.2 % (12.0-15.0); WHITE BLOOD COUNT 9.3 x10^3/uL (4.8-10.8)
[2023-10-05 10:48] LABS: ALBUMIN 4.3 g/dL (3.2-5.5); ALBUMIN/GLOBULIN RATIO 1.4 (1.0-2.2); BILIRUBIN,TOTAL 0.5 mg/dL (0.2-1.0); CALCIUM 9.8 mg/dL (8.5-10.3); CREATININE 0.9 mg/dL (0.6-1.3); POTASSIUM 4.5 mmol/L (3.5-4.5); TOTAL PROTEIN 7.3 g/dL (6.4-8.9)
[2023-10-05 11:05] LABS: THYROID STIMULATING HORMONE 0.25 uIU/mL (0.34-5.60)
== END 2023-10-05 09:11 | disposition home or self-care (01) ==
LOC: LAB 09:10
PROVIDERS: ATTEND Nurse Practitioner
DX: E03.9 Hypothyroidism, unspecified (principal); R53.83 Other fatigue
CPT/HCPCS: 36415; 80053; 84439; 84443; 85025

== ENCOUNTER 2023-10-09 13:08 | Outpatient (CLI) | payer BC ==
--- NOTE | 2023-10-09 16:27 | Ultrasound Report ---
PROCEDURE: Soft Tissue Head or Neck INDICATIONS: DYSPHAGIA, HYPOTHYROIDISM TECHNIQUE: Real-time scanning was performed of the thyroid gland, with image documentation. COMPARISON: 03/13/2020 FINDINGS: Right: Thyroid lobe measures 2.8 x 1.0 x 1.4 cm. Left: Thyroid lobe measures 2.3 x 0.8 x 1.1 cm Isthmus: 0.2 cm thick. Echotexture: Homogeneous. No thyroid nodule. Targeted ultrasound at patient's area of pain in bilateral neck demonstrates no fluid collection or f ocal mass. IMPRESSION: Atrophic bilateral thyroid. No focal thyroid nodule. Reviewed by: Preeti Gilliam MD on 10/09/2023 4:26 PM PDT Approved by: Preeti Gilliam MD on 10/09/2023 4:26 PM PDT Station ID: [id number]
== END 2023-10-09 13:09 | disposition home or self-care (01) ==
LOC: DI 13:08
PROVIDERS: ATTEND Nurse Practitioner
DX: R13.10 Dysphagia, unspecified (principal); E03.9 Hypothyroidism, unspecified; E03.4 Atrophy of thyroid (acquired)